=== PATIENT | male | born 1945 | race Hispanic/Latino ===

== ENCOUNTER 2017-03-26 18:03 | Inpatient (IN) | payer OTHER ==
[~2017-03-26] VITALS: Ht 165.1 cm; Wt 90.7 kg
[2017-03-26 18:40] LABS: BASOPHILS % (AUTO) 0.4 % (0.0-5.0); EOSINOPHILS % (AUTO) 0.3 % (0.0-8.0); HEMATOCRIT 29.2 % (42-54); MEAN CORPUSCULAR HEMOGLOBIN 29.5 pg (27.0-33.0); MEAN CORPUSCULAR HGB CONC 33.8 g/dL (32.0-36.0); MEAN CORPUSCULAR VOLUME 87.3 fL (79-99); MONOCYTES % (AUTO) 6.6 % (3.0-13.0); NEUTROPHILS % (AUTO) 87.7 % (40.0-77.0); PLATELET COUNT (AUTO) 213 K/uL (130-400); RED BLOOD CELL COUNT(AUTO) 3.34 MIL/uL (4.50-6.20); WHITE BLOOD COUNT (AUTO) 18.3 K/uL (4.8-10.8)
[2017-03-26] MEDS ORDERED: SODIUM CHLORIDE 0.9% 1000ML 1,000 ML IV ONE ×2 (18:48→20:05)
[2017-03-26] MEDS ORDERED: INSULIN HUMULIN R 100 UNIT/ML 3ML ONE (18:49)
[2017-03-26 18:55] LABS: INR 0.95 (0.85-1.15)
[2017-03-26 19:01] LABS: ALBUMIN 2.5 g/dL (3.5-5.0); BILIRUBIN,TOTAL 0.9 mg/dL (0.2-1.0); CREATININE 0.8 mg/dL (0.5-1.5); TOTAL PROTEIN, SERUM 6.4 g/dL (6.0-8.3)
[2017-03-26 19:05] LABS: CRP QUANTITATIVE 139.4 mg/L (0.00-9.0)
[2017-03-26 19:05] LABS: APPEARANCE,URINE Clear (CLEAR); BILIRUBIN,URINE Negative (NEGATIVE); COLOR,URINE Yellow (YELLOW); GLUCOSE, URINE (UA) >=1000 mg/dL (NEGATIVE); KETONES,URINE Trace mg/dL (NEGATIVE); LEUKOCYTE ESTERASE ,URINE Negative (NEGATIVE); NITRATE,URINE Negative (NEGATIVE); OCCULT BLOOD,URINE Trace (NEGATIVE); PH,URINE 5.5 (5.0-8.0); PROTEIN,URINE 300 (NEGATIVE)
[2017-03-26] MEDS ORDERED: MEROPENEM 1 GM VIAL ONE (19:08)
[2017-03-26] MEDS ORDERED: VANCOMYCIN 1GM+NS 250ML 250 ML IV ONE (19:09)
[2017-03-26] MEDS ORDERED: SODIUM CHLORIDE 0.9% 50 ML IV ONE (19:09)
[2017-03-26 19:13] LABS: RAPID GROUP A STREP NEGATIVE (NEGATIVE)
[2017-03-26 19:14] LABS: B-TYPE NATRIURETIC PEPTIDE 339 pg/mL (0-100)
[2017-03-26 19:22] LABS: BACTERIA,URINE None Seen /HPF (None Seen); RBC,URINE 0-1 /HPF (0-1); SQUAMOUS EPITHELIAL CELL,UR 0-2 /LPF (0-2); WBC,URINE 0-1 /HPF (0-1)
[2017-03-26] MEDS ORDERED: HYDRALAZINE HCL 20 MG/ML VIAL IV PRN (21:30)
[2017-03-26] MEDS ORDERED: VANCOMYCIN 1GM+NS 250ML 250 ML IV SCH (21:30)
[2017-03-26] MEDS ORDERED: MEROPENEM 500MG+NS 50ML 50 ML IV SCH (21:30)
[2017-03-26] MEDS ORDERED: GLUCAGON 1MG KIT 1 MG ML IM PRN (21:30)
[2017-03-26] MEDS ORDERED: ACETAMINOPHEN 325 MG TAB PO PRN (21:30)
[2017-03-26] MEDS ORDERED: ONDANSETRON HCL 4 MG/2 ML VIAL IV PRN (21:30)
[2017-03-26] MEDS ORDERED: MORPHINE SULFATE 2 MG/ML 1ML SYG IV PRN (21:30)
[2017-03-26] MEDS ORDERED: DEXTROSE 50%-WATER 50 ML DISP.SYRIN IV PRN (21:30)
[2017-03-26 22:51] VITALS: BP 129/62
[2017-03-26] MEDS ORDERED: INSU100V12 SQ (23:26)
[2017-03-27] MEDS ORDERED: PHARMACY COMMUNICATION MISC SCH (01:45)
[2017-03-27] MEDS ORDERED: VANCOMYCIN PROTOCOL PER PHARMACY IV SCH (02:00)
[2017-03-27] MEDS ORDERED: SCOPOLAMINE HYDROBROMIDE 1 EACH ADH..PATCH TD ONE (02:05)
[2017-03-27] MEDS: NITROGLYCERIN 1GM/1 INCH PACKET TD SCH ×6 (02:26→23:37)
[2017-03-27] MEDS: SCOPOLAMINE HYDROBROMIDE 1 EACH ADH..PATCH TD SCH (02:27)
[2017-03-27 03:31] VITALS: BP 124/56
[2017-03-27 04:38] LABS: HEMATOCRIT 28.5 % (42-54); MEAN CORPUSCULAR HEMOGLOBIN 30.7 pg (27.0-33.0); MEAN CORPUSCULAR HGB CONC 35.1 g/dL (32.0-36.0); MEAN CORPUSCULAR VOLUME 87.6 fL (79-99); PLATELET COUNT (AUTO) 254 K/uL (130-400); RED BLOOD CELL COUNT(AUTO) 3.25 MIL/uL (4.50-6.20); RED CELL DISTRIBUTION WIDTH 12.8 % (11.0-15.5); WHITE BLOOD COUNT (AUTO) 14.9 K/uL (4.8-10.8)
[2017-03-27 05:01] LABS: CREATININE 0.8 mg/dL (0.5-1.5); POTASSIUM 4.3 mmol/L (3.5-5.1); THYROID STIMULATING HORMONE 1.19 uIU/mL (0.36-3.74)
[2017-03-27 05:05] LABS: HEMOGLOBIN A1C 12.6 % (4.0-6.0)
[2017-03-27] MEDS: ACETAMINOPHEN 325 MG TAB PO PRN ×3 (05:35→20:34)
[2017-03-27] MEDS ORDERED: COMPOUND IV REFRIGERATED 1 EACH IVSOLN MISC PRN (06:30)
[2017-03-27] MEDS: MEROPENEM 500 MG VIAL IVP SCH ×3 (06:40→23:01)
[2017-03-27] MEDS: INSULIN HUMULIN R 100 UNIT/ML 3ML SQ SCH ×4 (06:44→21:21)
[2017-03-27 07:00] VITALS: BP 106/58
[2017-03-27] MEDS ORDERED: INSULIN DETEMIR 10ML 100 UNIT/ML 10ML SQ SCH (07:30)
[2017-03-27] MEDS ORDERED: PANTOPRAZOLE SODIUM 40 MG TABLET.DR PO SCH (09:00)
[2017-03-27] MEDS: ENOXAPARIN SODIUM 40 MG/0.4 ML SYRINGE SQ SCH (09:33)
[2017-03-27] MEDS: INSULIN GLARGINE 100 UNITS/ML 10 ML VIAL SQ SCH ×2 (09:33→21:22)
[2017-03-27] MEDS: FAMOTIDINE/PF 20 MG/2 ML VIAL IV SCH ×2 (09:33→20:35)
[2017-03-27] MEDS: VANCOMYCIN 1.25 GM in SODIUM CHLORIDE 0.9% 250 ML IV SCH ×2 (09:35→20:35)
[2017-03-27 12:25] VITALS: BP 121/72
[2017-03-27 16:00] VITALS: BP 121/72
[2017-03-27 20:17] VITALS: BP 135/62
[2017-03-27] MEDS: MIRTAZAPINE 15 MG TABLET PO SCH (20:35)
[2017-03-27] MEDS: ATORVASTATIN CALCIUM 20 MG TABLET PO SCH (20:35)
[2017-03-27 23:58] VITALS: BP 134/63
[2017-03-28 04:05] VITALS: BP 128/58
[2017-03-28] MEDS: NITROGLYCERIN 1GM/1 INCH PACKET TD SCH ×4 (06:21→23:40)
[2017-03-28] MEDS: MEROPENEM 500 MG VIAL IVP SCH ×3 (06:22→22:31)
[2017-03-28] MEDS: INSULIN HUMULIN R 100 UNIT/ML 3ML SQ SCH ×4 (06:25→21:35)
[2017-03-28] MEDS: INSULIN GLARGINE 100 UNITS/ML 10 ML VIAL SQ SCH ×2 (06:26→21:37)
[2017-03-28 08:00] VITALS: BP 138/76
[2017-03-28] MEDS: VANCOMYCIN 1.25 GM in SODIUM CHLORIDE 0.9% 250 ML IV SCH ×2 (09:00→11:10)
[2017-03-28] MEDS: FAMOTIDINE/PF 20 MG/2 ML VIAL IV SCH ×2 (09:20→21:37)
[2017-03-28] MEDS: ASPIRIN 325 MG TABLET PO SCH (09:20)
[2017-03-28] MEDS: ENOXAPARIN SODIUM 40 MG/0.4 ML SYRINGE SQ SCH (09:21)
[2017-03-28 11:56] VITALS: BP 137/71
[2017-03-28] MEDS: ACETAMINOPHEN 325 MG TAB PO PRN ×2 (13:10→21:40)
[2017-03-28 16:00] VITALS: BP 133/67
[2017-03-28 19:52] VITALS: BP 151/80
[2017-03-28] MEDS: ATORVASTATIN CALCIUM 20 MG TABLET PO SCH (21:37)
[2017-03-28] MEDS: MIRTAZAPINE 15 MG TABLET PO SCH (21:37)
[2017-03-28 23:56] VITALS: BP 130/59
[2017-03-29 03:53] VITALS: BP 139/67
[2017-03-29 04:13] LABS: CHOLESTEROL 109 mg/dL (<200); HDL CHOLESTEROL 26 mg/dL (29-71); LDL DIRECT 74 mg/dL (0-99); TRIGLYCERIDES 92 mg/dL (30-200)
[2017-03-29] MEDS: MEROPENEM 500 MG VIAL IVP SCH ×3 (06:38→22:19)
[2017-03-29] MEDS: NITROGLYCERIN 1GM/1 INCH PACKET TD SCH ×4 (06:40→23:37)
[2017-03-29] MEDS: INSULIN HUMULIN R 100 UNIT/ML 3ML SQ SCH ×4 (06:48→21:37)
[2017-03-29] MEDS: INSULIN GLARGINE 100 UNITS/ML 10 ML VIAL SQ SCH ×2 (06:52→21:38)
[2017-03-29 07:00] VITALS: BP 151/78
[2017-03-29] MEDS: ASPIRIN 325 MG TABLET PO SCH (09:00)
[2017-03-29] MEDS: ENOXAPARIN SODIUM 40 MG/0.4 ML SYRINGE SQ SCH (09:00)
[2017-03-29] MEDS: VANCOMYCIN 1.25 GM in SODIUM CHLORIDE 0.9% 250 ML IV SCH ×2 (09:18→22:19)
[2017-03-29] MEDS: ACETAMINOPHEN 325 MG TAB PO PRN (09:20)
[2017-03-29] MEDS: FAMOTIDINE/PF 20 MG/2 ML VIAL IV SCH ×2 (09:20→21:35)
[2017-03-29 11:00] VITALS: BP 98/50
[2017-03-29 16:00] VITALS: BP 144/66
[2017-03-29] MEDS ORDERED: MORPHINE SULFATE 4 MG/1ML SYG IV PRN (16:00)
[2017-03-29 20:14] VITALS: BP 167/78
[2017-03-29] MEDS ORDERED: INSULIN GLARGINE 100 UNITS/ML 10 ML VIAL SQ ONE (21:18)
[2017-03-29] MEDS: MIRTAZAPINE 15 MG TABLET PO SCH (21:35)
[2017-03-29] MEDS: ATORVASTATIN CALCIUM 20 MG TABLET PO SCH (21:35)
[2017-03-29] MEDS: SCOPOLAMINE HYDROBROMIDE 1 EACH ADH..PATCH TD SCH (23:30)
[2017-03-30] VITALS (11 sets, daily range): BP systolic 120–164; BP diastolic 57–96
[2017-03-30 04:30] LABS: HEMATOCRIT 28.7 % (42-54); MEAN CORPUSCULAR HEMOGLOBIN 30.7 pg (27.0-33.0); MEAN CORPUSCULAR HGB CONC 35.6 g/dL (32.0-36.0); MEAN CORPUSCULAR VOLUME 86.2 fL (79-99); PLATELET COUNT (AUTO) 329 K/uL (130-400); RED BLOOD CELL COUNT(AUTO) 3.33 MIL/uL (4.50-6.20); WHITE BLOOD COUNT (AUTO) 12.4 K/uL (4.8-10.8)
[2017-03-30 04:32] LABS: INR 0.95 (0.85-1.15); PARTIAL THROMBOPLASTIN TIME 32.2 SEC (26.3-35.5)
[2017-03-30 04:33] LABS: CREATININE 0.7 mg/dL (0.5-1.5); POTASSIUM 3.1 mmol/L (3.5-5.1)
[2017-03-30 04:49] LABS: BAND NEUTROPHILS % (MANUAL) 1 % (0-2); LYMPHOCYTES % (MANUAL) 20 % (22-44); MONOCYTES % (MANUAL) 4 % (2-9); SEGMENTED NEUTROPHILS % 75 % (40-70)
[2017-03-30 04:50] LABS: MAN.DIFF COMMENT-IMPRESSION MANUAL DIFFERENTIAL; PLATELET MORPHOLOGY COMMENT ADEQUATE
[2017-03-30] MEDS: NITROGLYCERIN 1GM/1 INCH PACKET TD SCH ×3 (06:14→17:14)
[2017-03-30] MEDS: MEROPENEM 500 MG VIAL IVP SCH ×3 (06:15→23:35)
[2017-03-30] MEDS: INSULIN HUMULIN R 100 UNIT/ML 3ML SQ SCH ×4 (06:16→22:33)
[2017-03-30] MEDS: INSULIN GLARGINE 100 UNITS/ML 10 ML VIAL SQ SCH ×2 (06:17→22:32)
[2017-03-30] MEDS: ENOXAPARIN SODIUM 40 MG/0.4 ML SYRINGE SQ SCH (07:36)
[2017-03-30] MEDS: ASPIRIN 325 MG TABLET PO SCH (07:43)
[2017-03-30] MEDS: VANCOMYCIN 1.25 GM in SODIUM CHLORIDE 0.9% 250 ML IV SCH ×2 (07:52→22:30)
[2017-03-30] MEDS: FAMOTIDINE/PF 20 MG/2 ML VIAL IV SCH (08:36)
[2017-03-30] MEDS: ACETAMINOPHEN 325 MG TAB PO PRN ×2 (08:36→11:41)
[2017-03-30] MEDS ORDERED: POTASSIUM CHLORIDE 20 MEQ ERTAB PO SCH (13:45)
[2017-03-30] MEDS ORDERED: SODIUM BICARB 50MEQ 50ML VIAL ONE (13:52)
[2017-03-30] MEDS ORDERED: HEPARIN SODIUM 1000UNIT/ML 10ML VIAL ONE (13:52)
[2017-03-30] MEDS ORDERED: ISOVUE-300 100 ML VIAL IV ONE ×2 (13:53→13:56)
[2017-03-30] MEDS ORDERED: NITROGLYCERIN 5 MG/ML 10 ML VIAL IV ONE (13:53)
[2017-03-30] MEDS ORDERED: LIDOCAINE HCL 2% 20ML ONE (13:53)
[2017-03-30] MEDS ORDERED: HYDRALAZINE HCL 20 MG/ML VIAL ONE (15:01)
[2017-03-30] MEDS ORDERED: PANT40TA PO (16:06)
[2017-03-30] MEDS ORDERED: CLOPIDOGREL BISULFATE 300 MG TAB ONE (16:06)
[2017-03-30] MEDS ORDERED: CLOP75TA14 PO (16:06)
[2017-03-30] MEDS ORDERED: PHARMACY COMMUNICATION MISC SCH (16:15)
[2017-03-30] MEDS: SODIUM CHLORIDE 0.9% 1000ML 1,000 ML IV SCH (16:38)
[2017-03-30] MEDS: ATORVASTATIN CALCIUM 20 MG TABLET PO SCH (22:31)
[2017-03-30] MEDS: MIRTAZAPINE 15 MG TABLET PO SCH (22:31)
[2017-03-30] MEDS: PANTOPRAZOLE SODIUM 40 MG TABLET.DR PO SCH (22:31)
[2017-03-31] VITALS (22 sets, daily range): BP systolic 119–168; BP diastolic 54–80
[2017-03-31] MEDS: NITROGLYCERIN 1GM/1 INCH PACKET TD SCH ×5 (01:00→23:46)
[2017-03-31] MEDS: SODIUM CHLORIDE 0.9% 1000ML 1,000 ML IV SCH (02:02)
[2017-03-31 04:16] LABS: HEMATOCRIT 29.6 % (42-54); MEAN CORPUSCULAR HEMOGLOBIN 29.6 pg (27.0-33.0); MEAN CORPUSCULAR HGB CONC 34.4 g/dL (32.0-36.0); MEAN CORPUSCULAR VOLUME 86.2 fL (79-99); PLATELET COUNT (AUTO) 342 K/uL (130-400); RED BLOOD CELL COUNT(AUTO) 3.44 MIL/uL (4.50-6.20); RED CELL DISTRIBUTION WIDTH 13.1 % (11.0-15.5); WHITE BLOOD COUNT (AUTO) 10.2 K/uL (4.8-10.8)
[2017-03-31 04:33] LABS: CREATININE 0.7 mg/dL (0.5-1.5); POTASSIUM 3.4 mmol/L (3.5-5.1)
[2017-03-31] MEDS: MEROPENEM 500 MG VIAL IVP SCH ×3 (05:59→23:38)
[2017-03-31] MEDS: INSULIN GLARGINE 100 UNITS/ML 10 ML VIAL SQ SCH ×2 (06:15→21:00)
[2017-03-31] MEDS: INSULIN HUMULIN R 100 UNIT/ML 3ML SQ SCH ×4 (06:15→21:00)
[2017-03-31] MEDS: ACETAMINOPHEN 325 MG TAB PO PRN (06:18)
[2017-03-31] MEDS: CLOPIDOGREL BISULFATE 75 MG TAB PO SCH (09:00)
[2017-03-31] MEDS: ASPIRIN 325 MG TABLET PO SCH (09:00)
[2017-03-31] MEDS: VANCOMYCIN 1.25 GM in SODIUM CHLORIDE 0.9% 250 ML IV SCH ×2 (11:16→23:38)
[2017-03-31] MEDS ORDERED: LIDOCAINE HCL 1% 20 ML VIAL ONE (16:58)
[2017-03-31] MEDS ORDERED: BUPIVACAINE/PF 0.5% 30ML VIAL ONE (16:59)
[2017-03-31] MEDS ORDERED: GLYCOPYRROLATE 0.2 MG/ML 5 ML VIAL ONE (17:23)
[2017-03-31] MEDS ORDERED: DEXAMETHASONE SOD PHOSPHATE 10MG/ML 1ML VIAL ONE (17:23)
[2017-03-31] MEDS ORDERED: LIDOCAINE PF 2% 5ML ABBOJECT ONE (17:23)
[2017-03-31] MEDS ORDERED: SUCCINYLCHOLINE 200MG/10ML SYR ONE (17:23)
[2017-03-31] MEDS ORDERED: ONDANSETRON HCL 4 MG/2 ML VIAL ONE (17:23)
[2017-03-31] MEDS ORDERED: PROPOFOL 10 MG/ML 20ML VIAL IV ONE (17:24)
[2017-03-31] MEDS ORDERED: FENTANYL CITRATE PF 50 MCG/1 ML 2ML VIAL ONE ×2 (17:24→17:27)
[2017-03-31] MEDS ORDERED: MIDAZOLAM HCL 1 MG/ML 2ML VIAL ONE ×3 (17:24→19:26)
[2017-03-31] MEDS: MIRTAZAPINE 15 MG TABLET PO SCH (23:39)
[2017-03-31] MEDS: ATORVASTATIN CALCIUM 20 MG TABLET PO SCH (23:39)
[2017-03-31] MEDS: PANTOPRAZOLE SODIUM 40 MG TABLET.DR PO SCH (23:39)
[2017-04-01] VITALS (9 sets, daily range): BP systolic 127–165; BP diastolic 57–99
[2017-04-01] MEDS: NITROGLYCERIN 1GM/1 INCH PACKET TD SCH ×4 (06:24→23:16)
[2017-04-01] MEDS: CLOPIDOGREL BISULFATE 75 MG TAB PO SCH (08:08)
[2017-04-01] MEDS: ASPIRIN 325 MG TABLET PO SCH (08:08)
[2017-04-01] MEDS: MEROPENEM 500 MG VIAL IVP SCH ×3 (08:09→23:16)
[2017-04-01] MEDS: INSULIN GLARGINE 100 UNITS/ML 10 ML VIAL SQ SCH ×2 (08:19→23:12)
[2017-04-01] MEDS: INSULIN HUMULIN R 100 UNIT/ML 3ML SQ SCH ×4 (08:19→23:12)
[2017-04-01] MEDS: VANCOMYCIN 1.25 GM in SODIUM CHLORIDE 0.9% 250 ML IV SCH ×2 (10:38→23:17)
[2017-04-01] MEDS: ACETAMINOPHEN 325 MG TAB PO PRN ×2 (10:45→23:15)
[2017-04-01] MEDS: MIRTAZAPINE 15 MG TABLET PO SCH (23:15)
[2017-04-01] MEDS: PANTOPRAZOLE SODIUM 40 MG TABLET.DR PO SCH (23:15)
[2017-04-01] MEDS: ATORVASTATIN CALCIUM 20 MG TABLET PO SCH (23:15)
[2017-04-01] MEDS: SCOPOLAMINE HYDROBROMIDE 1 EACH ADH..PATCH TD SCH (23:28)
[2017-04-02 03:00] VITALS: BP 141/69
[2017-04-02] MEDS: NITROGLYCERIN 1GM/1 INCH PACKET TD SCH ×3 (06:24→18:50)
[2017-04-02 07:00] VITALS: BP 132/57
[2017-04-02] MEDS: INSULIN HUMULIN R 100 UNIT/ML 3ML SQ SCH ×4 (07:30→22:33)
[2017-04-02] MEDS: INSULIN GLARGINE 100 UNITS/ML 10 ML VIAL SQ SCH ×2 (07:30→22:32)
[2017-04-02] MEDS: MEROPENEM 500 MG VIAL IVP SCH ×3 (08:18→22:35)
[2017-04-02] MEDS: ASPIRIN 325 MG TABLET PO SCH (10:02)
[2017-04-02] MEDS: CLOPIDOGREL BISULFATE 75 MG TAB PO SCH (10:02)
[2017-04-02 11:00] VITALS: BP 150/71
[2017-04-02] MEDS: VANCOMYCIN 1.25 GM in SODIUM CHLORIDE 0.9% 250 ML IV SCH (12:14)
[2017-04-02 15:36] VITALS: BP 134/66
[2017-04-02 20:00] VITALS: BP 144/68
[2017-04-02] MEDS: PANTOPRAZOLE SODIUM 40 MG TABLET.DR PO SCH (22:35)
[2017-04-02] MEDS: ATORVASTATIN CALCIUM 20 MG TABLET PO SCH (22:35)
[2017-04-02] MEDS: MIRTAZAPINE 15 MG TABLET PO SCH (22:35)
[2017-04-02 23:40] VITALS: BP 146/72
[2017-04-03] VITALS (11 sets, daily range): BP systolic 128–162; BP diastolic 59–79
[2017-04-03] MEDS: VANCOMYCIN 1.25 GM in SODIUM CHLORIDE 0.9% 250 ML IV SCH ×2 (01:22→09:53)
[2017-04-03] MEDS: NITROGLYCERIN 1GM/1 INCH PACKET TD SCH ×3 (01:23→12:24)
[2017-04-03] MEDS: ACETAMINOPHEN 325 MG TAB PO PRN (03:10)
[2017-04-03] MEDS: INSULIN GLARGINE 100 UNITS/ML 10 ML VIAL SQ SCH (06:07)
[2017-04-03] MEDS: INSULIN HUMULIN R 100 UNIT/ML 3ML SQ SCH ×2 (06:07→11:30)
[2017-04-03] MEDS: MEROPENEM 500 MG VIAL IVP SCH ×2 (07:10→15:26)
[2017-04-03] MEDS: CLOPIDOGREL BISULFATE 75 MG TAB PO SCH (09:53)
[2017-04-03] MEDS: ASPIRIN 325 MG TABLET PO SCH (09:53)
== END 2017-04-03 17:40 | DRG 854 ==
LOC: EDH 18:03 → EDHIP 21:19 → 2AH 22:38 → 3CH 03-31 20:46
PROVIDERS: ADMIT Family Medicine; ATTEND Family Medicine
PROC: 047P3ZZ Dilation of Right Anterior Tibial Artery, Percutaneous Approach (ICD-10-PCS; principal; 2017-03-30)
PROC: B4101ZZ Fluoroscopy of Abdominal Aorta using Low Osmolar Contrast (ICD-10-PCS; 2017-03-30)
PROC: B41C1ZZ Fluoroscopy of Pelvic Arteries using Low Osmolar Contrast (ICD-10-PCS; 2017-03-30)
PROC: B31R1ZZ Fluoroscopy of Intracranial Arteries using Low Osmolar Contrast (ICD-10-PCS; 2017-03-30)
PROC: 0Y6M0Z9 Detachment at Right Foot, Partial 1st Ray, Open Approach (ICD-10-PCS; 2017-03-31)
PROC: 0Y6M0ZB Detachment at Right Foot, Partial 2nd Ray, Open Approach (ICD-10-PCS; 2017-03-31)
PROC: 0Y6M0ZC Detachment at Right Foot, Partial 3rd Ray, Open Approach (ICD-10-PCS; 2017-03-31)
PROC: 0Y6M0ZD Detachment at Right Foot, Partial 4th Ray, Open Approach (ICD-10-PCS; 2017-03-31)
PROC: 0Y6M0ZF Detachment at Right Foot, Partial 5th Ray, Open Approach (ICD-10-PCS; 2017-03-31)
PROC: 0JBQ0ZZ Excision of Right Foot Subcutaneous Tissue and Fascia, Open Approach (ICD-10-PCS; 2017-03-31)
DX: A41.9 Sepsis, unspecified organism (principal); E11.52 Type 2 diabetes mellitus with diabetic peripheral angiopathy with gangrene; E11.21 Type 2 diabetes mellitus with diabetic nephropathy; E11.40 Type 2 diabetes mellitus with diabetic neuropathy, unspecified; L03.115 Cellulitis of right lower limb; E87.1 Hypo-osmolality and hyponatremia; M86.10 Other acute osteomyelitis, unspecified site; L97.809 Non-pressure chronic ulcer of other part of unspecified lower leg with unspecified severity; M86.9 Osteomyelitis, unspecified; I50.32 Chronic diastolic (congestive) heart failure; W19.XXXA Unspecified fall, initial encounter; E11.319 Type 2 diabetes mellitus with unspecified diabetic retinopathy without macular edema; D64.9 Anemia, unspecified; E11.621 Type 2 diabetes mellitus with foot ulcer; E11.622 Type 2 diabetes mellitus with other skin ulcer; E11.628 Type 2 diabetes mellitus with other skin complications; E11.65 Type 2 diabetes mellitus with hyperglycemia; E11.69 Type 2 diabetes mellitus with other specified complication; E66.9 Obesity, unspecified; E78.5 Hyperlipidemia, unspecified; H54.7 Unspecified visual loss; I10 Essential (primary) hypertension; I65.22 Occlusion and stenosis of left carotid artery; I70.209 Unspecified atherosclerosis of native arteries of extremities, unspecified extremity; I99.8 Other disorder of circulatory system; L97.519 Non-pressure chronic ulcer of other part of right foot with unspecified severity; Z68.33 Body mass index [BMI] 33.0-33.9, adult; Z79.4 Long term (current) use of insulin; Z88.0 Allergy status to penicillin; Z87.891 Personal history of nicotine dependence; Z86.73 Personal history of transient ischemic attack (TIA), and cerebral infarction without residual deficits; Y93.89 Activity, other specified; Y92.89 Other specified places as the place of occurrence of the external cause; Y99.8 Other external cause status; Z83.3 Family history of diabetes mellitus; Z82.49 Family history of ischemic heart disease and other diseases of the circulatory system
CPT/HCPCS: 36415; 37230; 70450; 70551; 71045; 73620; 73718; 75625; 75710; 75774; 78315; 80048; 80053; 80061; 80202; 81001; 82947; 82948; 83036; 83605; 83880; 84443; 84484; 85025; 85027; 85347; 85610; 85651; 85730; 86141; 87040; 87070; 87804; 87880; 88305; 93005; 93880; 93925; 97039; 99291; A4218; A9503; C1769; C1893; C1894; J0330; J0360; J1100; J1644; J1650; J1815; J2001; J2185; J2250; J2405; J2704; J3010; J3370; J3490; J7030; Q9967